=== PATIENT | male | born 1955 | race Caucasian/White ===

== ENCOUNTER 2024-06-22 11:07 | Day surgery (SDC) | payer OTHER ==
[~2024-06-22] VITALS: Ht 177.8 cm; Wt 85.4 kg
[2024-06-22] VITALS (10 sets, daily range): BP systolic 126–164; BP diastolic 64–94; PULSE 83–113; RESP 14–22; TEMP 98.6; O2SAT 94–96
[2024-06-22] MEDS ORDERED: ATOR-429 PO (11:43)
[2024-06-22] MEDS ORDERED: Vitamin D (11:43)
[2024-06-22] MEDS ORDERED: DIPH25TA62 PO (11:43)
[2024-06-22] MEDS ORDERED: FAMO20TA8 PO (11:43)
[2024-06-22] MEDS ORDERED: PRED20TA PO (11:43)
[2024-06-22 12:02] LABS: BASOPHILS # (AUTO) 0.1 X10'3 (0-0.2); BASOPHILS % (AUTO) 0.4 % (0-1); EOSINOPHILS % (AUTO) 0 % (0-6); HEMATOCRIT 46.5 % (42.0-52.0); HEMOGLOBIN 15.5 g/dl (14.0-17.9); LYMPHOCYTES % (AUTO) 5.8 % (21-51); MEAN CORPUSCULAR HGB CONC 33.3 g/dL (33.0-36.5); MEAN CORPUSCULAR VOLUME 93.2 FL (78-98); MEAN PLATELET VOLUME 8.3 FL (7.4-10.4); MONOCYTES # (AUTO) 0.2 X10'3 (0-0.9); MONOCYTES % (AUTO) 1.1 % (2-12); NEUTROPHILS # (AUTO) 15.8 X10'3 (1.8-7.7); NEUTROPHILS % (AUTO) 92.7 % (42-75); PLATELET COUNT 343 X10'3 (140-440); RED BLOOD COUNT 4.99 X10'6 (4.70-6.10); RED CELL DISTRIBUTION WIDTH 13.9 % (11.5-14.5); WHITE BLOOD COUNT 17.1 X10'3 (4.5-11.0)
[2024-06-22] MEDS ORDERED: midazolam 1 mg/ML 2ml injection ONE ×2 (12:08→13:35)
[2024-06-22] MEDS ORDERED: verapamil 2.5 mg/ml inj IV ONE (12:08)
[2024-06-22] MEDS ORDERED: LIDOcaine 1% (10mg/ml) 2ml vial ONE (12:08)
[2024-06-22] MEDS ORDERED: heparin 1,000unit/ml 10ml vial 10 ML ONE (12:09)
[2024-06-22] MEDS ORDERED: iohexol 350MG/ML 100ml bottle IV ONE (12:09)
[2024-06-22] MEDS ORDERED: fentaNYL/PF 50MCG/1 ML 2ML syringe ONE (12:09)
[2024-06-22] MEDS ORDERED: nitroGLYCERIN 500mcg/5mL D5W 5 ML IV ONE (12:14)
[2024-06-22] MEDS: diphenhydrAMINE 25mg capsule PO PRN (12:19)
[2024-06-22] MEDS: LORazepam 0.5 MG tablet PO PRN (12:20)
[2024-06-22] MEDS: normal saline 1,000 ML IV SCH (12:20)
[2024-06-22 12:21] LABS: APTT 27 SECONDS (22-32); INR 1.1 INR
[2024-06-22 12:26] LABS: ALBUMIN 4.3 G/DL (3.4-5.0); ANION GAP 15 (8-16); BLOOD UREA NITROGEN 13 MG/DL (7-18); BUN/CREATININE RATIO 14.4 (10.0-20.0); CALCIUM 9.5 MG/DL (8.5-10.1); CHLORIDE 107 MMOL/L (99-107); CHOL/HDL RATIO 2.9 (0.00-4.99); CHOLESTEROL 160 MG/DL (0-200); GLUCOSE 121 MG/DL (70-104); HDL CHOLESTEROL 55 MG/DL (35-60); LDL CHOLESTEROL 85 MG/DL (50-100); POTASSIUM 3.8 MMOL/L (3.5-5.1); SODIUM 143 MMOL/L (135-145); TOTAL CARBON DIOXIDE 21.5 MMOL/L (24-32); TRIGLYCERIDES 57 MG/DL (20-135); eCRCL 80 ML/MIN; eGFR 84 ML/MIN
[2024-06-22] MEDS ORDERED: HYDROcodone/acetaminophen 5mg/325mg tablet PO PRN (14:35)
[2024-06-22] MEDS ORDERED: HYDROcodone/acetaminophen 10/325mg tab PO PRN (14:35)
[2024-06-22] MEDS ORDERED: NITR0.4T51 SL (16:37)
[2024-06-23] MEDS ORDERED: 0.9126SP BOTHNARES (22:23)
== END 2024-06-22 17:00 | disposition home or self-care (01) ==
LOC: SSTAY O 11:07
PROVIDERS: ATTEND Student in an Organized Health Care Education/Training Program
DX: I25.10 Atherosclerotic heart disease of native coronary artery without angina pectoris (principal); E78.5 Hyperlipidemia, unspecified; Z79.01 Long term (current) use of anticoagulants; Z91.041 Radiographic dye allergy status; Z79.899 Other long term (current) drug therapy
CPT/HCPCS: 36415; 80048; 80061; 85025; 85610; 85730; 93005; 93458; J1644; J2003; J2250; J3010; J3490; J7030; Q0163; Q9967; 99152; 99153; A6258; A6402; C1894

== ENCOUNTER 2024-06-23 20:10 | Inpatient (IN) | payer MEDICARE, OTHER ==
[~2024-06-23] VITALS: Ht 175.3 cm; Wt 83.3 kg
[~2024-06-23 20:10] MED LIST: ATOR-429 PO; DIPH25TA62 PO; FAMO20TA8 PO; NITR0.4T51 SL; PRED20TA PO; Vitamin D
[2024-06-23 20:53] LABS: BASOPHILS # (AUTO) 0.1 X10'3 (0-0.2); BASOPHILS % (AUTO) 1.2 % (0-1); EOSINOPHILS # (AUTO) 0.1 X10'3 (0-0.9); EOSINOPHILS % (AUTO) 0.8 % (0-6); HEMATOCRIT 38.7 % (42.0-52.0); HEMOGLOBIN 13.5 g/dl (14.0-17.9); LYMPHOCYTES # (AUTO) 2.6 X10'3 (1.1-4.8); LYMPHOCYTES % (AUTO) 28.1 % (21-51); MEAN CORPUSCULAR HEMOGLOBIN 32.2 PG (27.0-31.0); MEAN CORPUSCULAR HGB CONC 34.8 g/dL (33.0-36.5); MEAN CORPUSCULAR VOLUME 92.6 FL (78-98); MEAN PLATELET VOLUME 8.1 FL (7.4-10.4); MONOCYTES # (AUTO) 0.7 X10'3 (0-0.9); MONOCYTES % (AUTO) 7.3 % (2-12); NEUTROPHILS # (AUTO) 5.9 X10'3 (1.8-7.7); NEUTROPHILS % (AUTO) 62.6 % (42-75); PLATELET COUNT 276 X10'3 (140-440); RED BLOOD COUNT 4.18 X10'6 (4.70-6.10); RED CELL DISTRIBUTION WIDTH 13.7 % (11.5-14.5); WHITE BLOOD COUNT 9.4 X10'3 (4.5-11.0)
[2024-06-23 21:04] LABS: ALANINE AMINOTRANSFERASE 51 U/L (12-78); ALBUMIN 3.6 G/DL (3.4-5.0); ALBUMIN/GLOBULIN RATIO 1.2 (1.1-1.5); ALKALINE PHOSPHATASE 90 IU/L (46-116); ANION GAP 8 (8-16); ASPARTATE AMINO TRANSFERASE 29 U/L (10-37); BILIRUBIN,TOTAL 0.3 MG/DL (0.1-1.0); BLOOD UREA NITROGEN 17 MG/DL (7-18); BUN/CREATININE RATIO 16.5 (10.0-20.0); CHLORIDE 111 MMOL/L (99-107); CREATININE 1.03 MG/DL (0.60-1.10); GLUCOSE 94 MG/DL (70-104); LIPASE 45 U/L (16-77); POTASSIUM 3.7 MMOL/L (3.5-5.1); PRO BRAIN NATRIURETIC PEPTIDE 102 PG/ML (0-125); SODIUM 143 MMOL/L (135-145); TOTAL CARBON DIOXIDE 23.7 MMOL/L (24-32); TOTAL PROTEIN 6.5 G/DL (6.4-8.2); eCRCL 70 ML/MIN; eGFR 72 ML/MIN
[2024-06-23 21:28] LABS: CALCIUM 8.7 MG/DL (8.5-10.1)
[2024-06-23 21:49] LABS: BILIRUBIN,URINE NEGATIVE (Neg); CLARITY,URINE CLEAR (Clear); COLOR,URINE YELLOW (Yellow); GLUCOSE, URINE NEGATIVE (Neg); KETONES,URINE NEGATIVE (Neg); LEUKOCYTE ESTERASE ,URINE NEGATIVE (Neg); NITRITES, URINE NEGATIVE (Neg); OCCULT BLOOD,URINE NEGATIVE (Neg); PROTEIN,URINE NEGATIVE (Neg); UROBILINOGEN,URINE 0.2 E.U/dL (0.2-1.0)
[2024-06-23 21:53] LABS: UA COLLECTION TYPE CLN CATCH MIDSTREAM
[2024-06-23] MEDS ORDERED: magnesium Cl slow-release 64mg tablet PO PRN (21:55)
[2024-06-23] MEDS ORDERED: magnesium sulf-water 2g/50mL 50 ML IV PRN (21:55)
[2024-06-23] MEDS ORDERED: mag hydrox/Alum hydrox/simeth 30ml oral suspension PO PRN (21:55)
[2024-06-23] MEDS ORDERED: potassium Cl 20 mEq SR tablet PO PRN ×2 (21:55)
[2024-06-23] MEDS ORDERED: magnesium sulf-water 4G/100mL 100 ML IV PRN (21:55)
[2024-06-23] MEDS ORDERED: potassium Cl 40MEQ/1/2NS 520ml 520 ML IV PRN (21:55)
[2024-06-23] MEDS ORDERED: acetaminophen 325mg tablet PO PRN ×2 (21:55)
[2024-06-23] MEDS ORDERED: ondansetron/PF 4mg/2ml inj IV PRN (21:55)
[2024-06-23] MEDS ORDERED: magnesium hydroxide 30ml (MOM) UD suspension PO PRN (21:55)
[2024-06-23] MEDS: metoprolol succinate 25mg (24-HOUR) SR. Tablet PO SCH (22:00)
[2024-06-23] MEDS ORDERED: 0.9126SP BOTHNARES (22:23)
[2024-06-23] MEDS ORDERED: ipratropium 0.03% 30ML nasal spray NS PRN (23:40)
[2024-06-23] MEDS ORDERED: nitroGLYCERIN 0.4mg SUBLingual tab SL PRN (23:40)
[2024-06-24 00:37] LABS: URINE AMPHETAMINE SCREEN NEGATIVE (Neg); URINE BARBITUATE SCREEN NEGATIVE (Neg); URINE BENZODIAZEPINES SCREEN POSITIVE (Neg); URINE CANNABINOID SCREEN NEGATIVE (Neg); URINE COCAINE SCREEN NEGATIVE (Neg); URINE METHADONE SCREEN NEGATIVE (Neg); URINE OPIATE SCREEN NEGATIVE (Neg); URINE PHENCYCLIDINE SCREEN NEGATIVE (Neg)
[2024-06-24 02:50] LABS: BASOPHILS # (AUTO) 0.1 X10'3 (0-0.2); BASOPHILS % (AUTO) 0.7 % (0-1); EOSINOPHILS # (AUTO) 0.1 X10'3 (0-0.9); EOSINOPHILS % (AUTO) 0.7 % (0-6); HEMATOCRIT 40.4 % (42.0-52.0); HEMOGLOBIN 13.8 g/dl (14.0-17.9); LYMPHOCYTES # (AUTO) 2.6 X10'3 (1.1-4.8); LYMPHOCYTES % (AUTO) 29.7 % (21-51); MEAN CORPUSCULAR HEMOGLOBIN 31.7 PG (27.0-31.0); MEAN CORPUSCULAR HGB CONC 34.2 g/dL (33.0-36.5); MEAN CORPUSCULAR VOLUME 92.8 FL (78-98); MEAN PLATELET VOLUME 7.9 FL (7.4-10.4); MONOCYTES # (AUTO) 0.7 X10'3 (0-0.9); MONOCYTES % (AUTO) 7.9 % (2-12); NEUTROPHILS # (AUTO) 5.4 X10'3 (1.8-7.7); PLATELET COUNT 279 X10'3 (140-440); RED BLOOD COUNT 4.35 X10'6 (4.70-6.10); RED CELL DISTRIBUTION WIDTH 13.8 % (11.5-14.5); WHITE BLOOD COUNT 8.9 X10'3 (4.5-11.0)
[2024-06-24 03:04] LABS: APTT 28 SECONDS (22-32); INR 1.1 INR
[2024-06-24 03:14] LABS: ALANINE AMINOTRANSFERASE 56 U/L (12-78); ALBUMIN 3.5 G/DL (3.4-5.0); ALBUMIN/GLOBULIN RATIO 1.2 (1.1-1.5); ALKALINE PHOSPHATASE 91 IU/L (46-116); ANION GAP 6 (8-16); ASPARTATE AMINO TRANSFERASE 22 U/L (10-37); BILIRUBIN,TOTAL 0.4 MG/DL (0.1-1.0); BLOOD UREA NITROGEN 16 MG/DL (7-18); BUN/CREATININE RATIO 18.2 (10.0-20.0); CALCIUM 8.5 MG/DL (8.5-10.1); CHLORIDE 111 MMOL/L (99-107); CHOLESTEROL 133 MG/DL (0-200); CREATININE 0.88 MG/DL (0.60-1.10); GLUCOSE 90 MG/DL (70-104); HDL CHOLESTEROL 45 MG/DL (35-60); LDL CHOLESTEROL 64 MG/DL (50-100); MAGNESIUM 1.9 MG/DL (1.5-2.4); PHOSPHORUS 3.2 MG/DL (2.3-4.5); POTASSIUM 3.7 MMOL/L (3.5-5.1); SODIUM 144 MMOL/L (135-145); TOTAL CARBON DIOXIDE 26.6 MMOL/L (24-32); TOTAL PROTEIN 6.4 G/DL (6.4-8.2); TRIGLYCERIDES 127 MG/DL (20-135); eCRCL 82 ML/MIN; eGFR 86 ML/MIN
[2024-06-24] MEDS: K and/or MAG REPLACEMENT MC SCH (06:38)
[2024-06-24] MEDS: docusate sod 100mg capsule PO SCH (07:23)
[2024-06-24] MEDS: atorvastatin 20mg tablet PO SCH (07:23)
[2024-06-24] MEDS: aspirin 81mg, enteric-coated 1 TAB TABLET.DR PO SCH (07:23)
[2024-06-24] MEDS ORDERED: nitroGLYCERIN 0.4mg SUBLingual tab SL PRN (08:20)
[2024-06-24] MEDS ORDERED: Insulin Reg/NS 100units/100mL 100 ML IV SCH (09:35)
[2024-06-24] MEDS ORDERED: insulin glargine (Lantus) pen - multi-dose SQ PRN (09:35)
[2024-06-24] MEDS ORDERED: cefazolin 2gm/D5W 100mL 100 ML IV ONE (09:35)
[2024-06-24] MEDS ORDERED: gabapentin 400mg capsule PO ONE (09:35)
[2024-06-24] MEDS ORDERED: dextrose 50%-water 50ml dispensing syringe IV PRN (09:35)
[2024-06-24] MEDS: MESSAGE TO NURSING PO ONE ×4 (10:18→10:21)
[2024-06-24] MEDS: MESSAGE TO PHARMACY IJ ONE (10:18)
[2024-06-24 10:45] LABS: HEMOGLOBIN A1C 5.8 % (4.5-6.2)
[2024-06-24 11:03] LABS: APTT 28 SECONDS (22-32); PROTHROMBIN TIME 10.9 SECONDS (9.0-12.0)
[2024-06-24] MEDS: salt irrigation nasal spray 45 ML SPRAY NS SCH (13:42)
[2024-06-24 13:49] LABS: ABG BASE EXCESS -1.2 mmol/L (-2.0-3.0); ABG HCO3 21.3 mmol/L (21.0-28.0); ABG OXYGEN SATURATION 96.2 % (94.0-98.0); ABG PCO2 (T) 30.1 mmHg (35.0-48.0); ABG PH (T) 7.468 (7.350-7.450); ABG PO2 (T) 81.4 mmHg (83.0-108.0); ALLEN'S TEST POSITIVE; FHHb 3.8 % (0.0-5.0); FMetHb 0.3 % (0.0-1.5); FO2Hb 95.9 % (94.0-98.0); MODE ROOM AIR; TOTAL HEMOGLOBIN 14.6 G/dl (13.5-17.5)
[2024-06-24 17:31] VITALS: PULSE 96; RESP 16; O2SAT 97
[2024-06-24] MEDS ORDERED: LORA2TAB96 PO (18:44)
[2024-06-24 19:30] VITALS: BP 143/85; PULSE 84; RESP 15; TEMP 97.5; O2SAT 96
[2024-06-24] MEDS ORDERED: enoxaparin 40mg/0.4ml syringe SQ SCH (20:00)
[2024-06-24 22:00] VITALS: BP 157/83; PULSE 102; RESP 15; RESP 17; TEMP 97.6; O2SAT 100
[2024-06-24 22:18] VITALS: BP 156/63; PULSE 100
[2024-06-24] MEDS: Melatonin 3mg tablet PO ONE (23:16)
[2024-06-25] VITALS (19 sets, daily range): BP systolic 82–300; BP diastolic 39–144; PULSE 67–101; RESP 14–26; TEMP 97.4–97.9; O2SAT 90–100
[2024-06-25] MEDS: MESSAGE TO NURSING PO ONE (05:30)
[2024-06-25] MEDS ORDERED: vancomycin inj 1,000 MG in normal saline 250ml IV soln 250 ML IV ONE (05:30)
[2024-06-25] MEDS ORDERED: albumin (human) 25% 100 ML IV solution IV ONE (08:00)
[2024-06-25] MEDS ORDERED: atorvastatin 20mg tablet PO SCH (08:00)
[2024-06-25 08:07] LABS: BASOPHILS # (AUTO) 0.1 X10'3 (0-0.2); BASOPHILS % (AUTO) 0.8 % (0-1); EOSINOPHILS % (AUTO) 0.5 % (0-6); HEMATOCRIT 41.5 % (42.0-52.0); HEMOGLOBIN 14.4 g/dl (14.0-17.9); LYMPHOCYTES # (AUTO) 2.1 X10'3 (1.1-4.8); LYMPHOCYTES % (AUTO) 23.5 % (21-51); MEAN CORPUSCULAR HEMOGLOBIN 31.9 PG (27.0-31.0); MEAN CORPUSCULAR HGB CONC 34.7 g/dL (33.0-36.5); MEAN CORPUSCULAR VOLUME 91.8 FL (78-98); MEAN PLATELET VOLUME 8.4 FL (7.4-10.4); MONOCYTES # (AUTO) 0.6 X10'3 (0-0.9); NEUTROPHILS # (AUTO) 6.1 X10'3 (1.8-7.7); NEUTROPHILS % (AUTO) 68.2 % (42-75); PLATELET COUNT 301 X10'3 (140-440); RED BLOOD COUNT 4.52 X10'6 (4.70-6.10); RED CELL DISTRIBUTION WIDTH 13.4 % (11.5-14.5); WHITE BLOOD COUNT 8.9 X10'3 (4.5-11.0)
[2024-06-25 08:23] LABS: APTT 29 SECONDS (22-32); PROTHROMBIN TIME 10.9 SECONDS (9.0-12.0)
[2024-06-25 08:57] LABS: ALANINE AMINOTRANSFERASE 47 U/L (12-78); ALBUMIN 3.5 G/DL (3.4-5.0); ALBUMIN/GLOBULIN RATIO 1.1 (1.1-1.5); ALKALINE PHOSPHATASE 97 IU/L (46-116); ANION GAP 13 (8-16); ASPARTATE AMINO TRANSFERASE 24 U/L (10-37); BILIRUBIN,TOTAL 0.7 MG/DL (0.1-1.0); BLOOD UREA NITROGEN 16 MG/DL (7-18); BUN/CREATININE RATIO 19.8 (10.0-20.0); CALCIUM 8.9 MG/DL (8.5-10.1); CHLORIDE 108 MMOL/L (99-107); CREATININE 0.81 MG/DL (0.60-1.10); GLUCOSE 97 MG/DL (70-104); PHOSPHORUS 2.9 MG/DL (2.3-4.5); POTASSIUM 3.8 MMOL/L (3.5-5.1); SODIUM 141 MMOL/L (135-145); TOTAL CARBON DIOXIDE 20.4 MMOL/L (24-32); TOTAL PROTEIN 6.7 G/DL (6.4-8.2); eCRCL 89 ML/MIN; eGFR > 90 ML/MIN
[2024-06-25] MEDS: gabapentin 400mg capsule PO ONE (09:14)
[2024-06-25] MEDS: mupirocin 2% nasal ointment 1gm UD NS STA (09:18)
[2024-06-25] MEDS: Insulin Reg/NS 100units/100mL 100 ML IV SCH (11:01)
[2024-06-25] MEDS: ceFAZolin 2gm in dextrose, iso 50 ML IV ONE (11:01)
[2024-06-25] MEDS: vancomycin/NS 1 GM ADD-VANTAGE 250 ML X 1 DOSE IV ONE (11:02)
[2024-06-25] MEDS: LORazepam 2 mg/ml vial IV ONE (11:05)
[2024-06-25] MEDS: oxymetazoline 15 ML nasal spray NS SCH (11:45)
[2024-06-25] MEDS ORDERED: ceFAZolin 1000mg inj ONE (11:56)
[2024-06-25] MEDS ORDERED: epiNEPHrine 1 mg/ml inj ONE (11:56)
[2024-06-25] MEDS ORDERED: BUPIVAcaine 0.5% inj/PF 30 ML ONE (11:56)
[2024-06-25] MEDS ORDERED: vancomycin 1,000mg inj ONE (11:56)
[2024-06-25] MEDS ORDERED: fentaNYL/PF 50MCG/1 ML 2ML syringe IV PRN (12:00)
[2024-06-25] MEDS ORDERED: midazolam 100mg in NS 100ml 100 ML IV SCH (12:00)
[2024-06-25] MEDS: midazolam 1 mg/ML 2ml injection IV ONE (12:00)
[2024-06-25] MEDS: ceFAZolin 1000mg inj IR ONE (12:00)
[2024-06-25] MEDS ORDERED: FENTANYL-0.9 % NACL/PF 100 ML IV SCH (12:00)
[2024-06-25] MEDS: metoprolol tartrate 12.5mg (1/2 tablet) PO ONE (12:29)
[2024-06-25] MEDS ORDERED: MIDAZolam 1mg/ml 10ml vial ONE (12:30)
[2024-06-25] MEDS ORDERED: SUfentanil 50mcg/ml 1ml amp IV ONE (12:30)
[2024-06-25] MEDS ORDERED: isoflurane 100ml inhalation liquid IH ONE (12:34)
[2024-06-25 13:14] LABS: ABG BASE EXCESS -3.9 mmol/L (-2.0-3.0); ABG HCO3 18.2 mmol/L (21.0-28.0); ABG OXYGEN SATURATION 99.5 % (94.0-98.0); ABG PH 7.463 (7.350-7.450); CL (ABG) 108 mmol/L (98-107); FCOHb 0.1 % (0.5-1.5); FHHb 0.5 % (0.0-5.0); FMetHb 0.1 % (0.0-1.5); FO2Hb 99.3 % (94.0-98.0); GLUCOSE (ABG) 82 mg/dl (65-95); IONIZED CA (ABG) 1.14 mmol/L (1.15-1.33); K (ABG) 3.5 mmol/L (3.40-4.50); TOTAL HEMOGLOBIN 13.8 G/dl (13.5-17.5)
[2024-06-25] MEDS ORDERED: albumin (Human) 5% 250ml 250 ML IV ONE (13:23)
[2024-06-25 14:16] LABS: ABG BASE EXCESS -6.2 mmol/L (-2.0-3.0); ABG HCO3 18.9 mmol/L (21.0-28.0); ABG OXYGEN SATURATION 99.3 % (94.0-98.0); ABG PCO2 36.1 mmHg (35.0-48.0); ABG PH 7.337 (7.350-7.450); CL (ABG) 107 mmol/L (98-107); FCOHb 0.6 % (0.5-1.5); FHHb 0.7 % (0.0-5.0); FMetHb 0.3 % (0.0-1.5); FO2Hb 98.4 % (94.0-98.0); GLUCOSE (ABG) 92 mg/dl (65-95); IONIZED CA (ABG) 1.16 mmol/L (1.15-1.33); K (ABG) 3.6 mmol/L (3.40-4.50); TOTAL HEMOGLOBIN 13.2 G/dl (13.5-17.5)
[2024-06-25] MEDS ORDERED: heparin 1,000unit/ml 10ml vial 10 ML ONE (14:33)
[2024-06-25] MEDS ORDERED: rocuronium 10mg/ml inj IV ONE ×3 (14:33)
[2024-06-25] MEDS ORDERED: LIDOcaine 2% (20mg/ml) 5ml vial ONE (14:34)
[2024-06-25] MEDS ORDERED: 0.9 % SODIUM CHLORIDE 10 ML VIAL ONE (14:34)
[2024-06-25] MEDS ORDERED: propofol inj 20 ML IV ONE (14:34)
[2024-06-25 15:10] LABS: ABG BASE EXCESS -7.6 mmol/L (-2.0-3.0); ABG HCO3 17.3 mmol/L (21.0-28.0); ABG OXYGEN SATURATION 99.2 % (94.0-98.0); ABG PCO2 33.5 mmHg (35.0-48.0); ABG PH 7.332 (7.350-7.450); ABG PO2 236.3 mmHg (83.0-108.0); CL (ABG) 109 mmol/L (98-107); FCOHb 0.2 % (0.5-1.5); FHHb 0.8 % (0.0-5.0); FMetHb 0.3 % (0.0-1.5); FO2Hb 98.7 % (94.0-98.0); GLUCOSE (ABG) 125 mg/dl (65-95); IONIZED CA (ABG) 1.12 mmol/L (1.15-1.33); K (ABG) 3.6 mmol/L (3.40-4.50); TOTAL HEMOGLOBIN 12.3 G/dl (13.5-17.5)
[2024-06-25 15:11] LABS: ACTIVATED CLOTTING TIME 119 SEC (101-148)
[2024-06-25] MEDS ORDERED: nitroGLYCERIN-Tridil 50MG/D5W 250 ML IV SCH (15:25)
[2024-06-25] MEDS ORDERED: mineral oil 133ml enema RC PRN (15:25)
[2024-06-25] MEDS ORDERED: niCARDipine-NS 40mg/200ml IVPB 200 ML IV PRN (15:25)
[2024-06-25] MEDS ORDERED: bisacodyl 10mg suppository rectal RC PRN (15:25)
[2024-06-25] MEDS ORDERED: acetaminophen 325mg tablet PO PRN (15:25)
[2024-06-25] MEDS ORDERED: magnesium hydroxide 30ml (MOM) UD suspension PO PRN (15:25)
[2024-06-25] MEDS ORDERED: potassium Cl 40MEQ/1/2NS 520ml 520 ML IV PRN (15:25)
[2024-06-25] MEDS ORDERED: potassium CL 10mEq/100ml bag 100 ML IV PRN (15:25)
[2024-06-25] MEDS ORDERED: metoclopramide 5 mg/ml inj IV PRN (15:25)
[2024-06-25] MEDS ORDERED: esmolol inj. 10 ML IV ONE (15:31)
[2024-06-25 16:16] LABS: ABG BASE EXCESS -7.4 mmol/L (-2.0-3.0); ABG HCO3 18.3 mmol/L (21.0-28.0); ABG PCO2 (T) 37.7 mmHg (35.0-48.0); ABG PH (T) 7.303 (7.350-7.450); ABG PO2 (T) 173.2 mmHg (83.0-108.0); FCOHb 0.1 % (0.5-1.5); FMetHb 0.3 % (0.0-1.5); FO2Hb 98.6 % (94.0-98.0); MODE VENT - SIMV; PEEP 5 cm H2O; RESPIRATORY RATE 12 b/min; TIDAL VOLUME 550 mL; TOTAL HEMOGLOBIN 12.9 G/dl (13.5-17.5)
[2024-06-25 16:18] LABS: BASOPHILS % (AUTO) 0.2 % (0-1); EOSINOPHILS # (AUTO) 0.1 X10'3 (0-0.9); EOSINOPHILS % (AUTO) 0.7 % (0-6); HEMATOCRIT 35.3 % (42.0-52.0); HEMOGLOBIN 11.9 g/dl (14.0-17.9); LYMPHOCYTES # (AUTO) 2.2 X10'3 (1.1-4.8); LYMPHOCYTES % (AUTO) 13.1 % (21-51); MEAN CORPUSCULAR HEMOGLOBIN 31.2 PG (27.0-31.0); MEAN CORPUSCULAR HGB CONC 33.8 g/dL (33.0-36.5); MEAN CORPUSCULAR VOLUME 92.4 FL (78-98); MEAN PLATELET VOLUME 7.7 FL (7.4-10.4); MONOCYTES # (AUTO) 0.7 X10'3 (0-0.9); MONOCYTES % (AUTO) 4.2 % (2-12); NEUTROPHILS # (AUTO) 13.5 X10'3 (1.8-7.7); NEUTROPHILS % (AUTO) 81.8 % (42-75); PLATELET COUNT 244 X10'3 (140-440); RED BLOOD COUNT 3.83 X10'6 (4.70-6.10); RED CELL DISTRIBUTION WIDTH 13.8 % (11.5-14.5); WHITE BLOOD COUNT 16.4 X10'3 (4.5-11.0)
[2024-06-25] MEDS: morphine 4 MG/ML inj SYRINge IV PRN (16:32)
[2024-06-25] MEDS ORDERED: OXYM-21 BOTHNARES (16:32)
[2024-06-25 16:34] LABS: INR 1.2 INR; PROTHROMBIN TIME 12.1 SECONDS (9.0-12.0)
[2024-06-25 16:35] LABS: APTT 25 SECONDS (22-32)
[2024-06-25 16:36] LABS: ALANINE AMINOTRANSFERASE 38 U/L (12-78); ALBUMIN/GLOBULIN RATIO 1.4 (1.1-1.5); ALKALINE PHOSPHATASE 68 IU/L (46-116); ANION GAP 13 (8-16); ASPARTATE AMINO TRANSFERASE 18 U/L (10-37); BILIRUBIN,TOTAL 0.7 MG/DL (0.1-1.0); BLOOD UREA NITROGEN 15 MG/DL (7-18); BUN/CREATININE RATIO 21.1 (10.0-20.0); CHLORIDE 108 MMOL/L (99-107); CREATININE 0.71 MG/DL (0.60-1.10); GLUCOSE 140 MG/DL (70-104); POTASSIUM 3.9 MMOL/L (3.5-5.1); SODIUM 142 MMOL/L (135-145); TOTAL CARBON DIOXIDE 21.3 MMOL/L (24-32); TOTAL PROTEIN 5.2 G/DL (6.4-8.2); eCRCL 98 ML/MIN; eGFR > 90 ML/MIN
[2024-06-25 16:37] LABS: MAGNESIUM 1.7 MG/DL (1.5-2.4); PHOSPHORUS 3.5 MG/DL (2.3-4.5)
[2024-06-25] MEDS: sodium chloride 0.45% 1,000 ML IV SCH (17:06)
[2024-06-25] MEDS: nitroGLYCERIN-Tridil 50MG/D5W 250 ML IV SCH (17:08)
[2024-06-25] MEDS: albumin (Human) 5% 250ml 250 ML IV PRN (17:14)
[2024-06-25] MEDS: ceFAZolin/D5W- 1GM premix 50 ML IV SCH (17:26)
[2024-06-25] MEDS: ketorolac trometh 15mg/ml vial 15 MG/ML ML IV SCH (18:01)
[2024-06-25] MEDS: potassium Cl 20mEq/100mL bag 100 ML IV PRN (18:33)
[2024-06-25] MEDS: magnesium sulf-water 4G/100mL 100 ML IV PRN (18:43)
[2024-06-25] MEDS ORDERED: dextrose 50%-water 50ml dispensing syringe IV PRN (19:15)
[2024-06-25] MEDS: sennosides/docusate sodium tablet PO SCH (20:00)
[2024-06-25] MEDS ORDERED: VANCOMYCIN 1GM 200ML H20 (PEG) 200 ML IV SCH (20:00)
[2024-06-25] MEDS: atorvastatin 10mg tablet PO SCH (20:09)
[2024-06-25] MEDS: vancomycin/NS 1 GM ADD-VANTAGE 250 ML IV SCH (20:09)
[2024-06-25] MEDS: mupirocin 2% nasal ointment 1gm UD NS SCH (20:09)
[2024-06-25] MEDS: magnesium sulf-water 2g/50mL 50 ML IV PRN (22:01)
[2024-06-25 22:28] LABS: BASOPHILS % (AUTO) 0.1 % (0-1); EOSINOPHILS % (AUTO) 0 % (0-6); HEMATOCRIT 31.6 % (42.0-52.0); HEMOGLOBIN 10.5 g/dl (14.0-17.9); LYMPHOCYTES # (AUTO) 0.4 X10'3 (1.1-4.8); LYMPHOCYTES % (AUTO) 2.7 % (21-51); MEAN CORPUSCULAR HGB CONC 33.3 g/dL (33.0-36.5); MEAN CORPUSCULAR VOLUME 93.1 FL (78-98); MONOCYTES # (AUTO) 0.7 X10'3 (0-0.9); NEUTROPHILS # (AUTO) 12.8 X10'3 (1.8-7.7); NEUTROPHILS % (AUTO) 92.2 % (42-75); PLATELET COUNT 222 X10'3 (140-440); RED BLOOD COUNT 3.39 X10'6 (4.70-6.10); RED CELL DISTRIBUTION WIDTH 13.3 % (11.5-14.5); WHITE BLOOD COUNT 13.9 X10'3 (4.5-11.0)
[2024-06-25 22:41] LABS: ALBUMIN 3.4 G/DL (3.4-5.0); ANION GAP 12 (8-16); BLOOD UREA NITROGEN 18 MG/DL (7-18); BUN/CREATININE RATIO 22.8 (10.0-20.0); CALCIUM 7.4 MG/DL (8.5-10.1); CHLORIDE 110 MMOL/L (99-107); CREATININE 0.79 MG/DL (0.60-1.10); GLUCOSE 134 MG/DL (70-104); MAGNESIUM 2.9 MG/DL (1.5-2.4); PHOSPHORUS 2.8 MG/DL (2.3-4.5); POTASSIUM 4.7 MMOL/L (3.5-5.1); SODIUM 140 MMOL/L (135-145); TOTAL CARBON DIOXIDE 17.8 MMOL/L (24-32); eCRCL 88 ML/MIN; eGFR > 90 ML/MIN
[2024-06-26] VITALS (25 sets, daily range): BP systolic 91–117; BP diastolic 54–72; PULSE 86–116; RESP 14–30; O2SAT 92–99
[2024-06-26] MEDS: morphine 2 MG/ML inj. syringe IV PRN (00:09)
[2024-06-26] MEDS: Insulin Reg/NS 100units/100mL 100 ML IV SCH (01:11)
[2024-06-26] MEDS: HYDROcodone/acetaminophen 10/325mg tab PO PRN ×2 (03:18→20:51)
[2024-06-26] MEDS ORDERED: NORepinephrine 8mg/ 250ml NS 250 ML IV PRN (05:15)
[2024-06-26 06:04] LABS: BASOPHILS % (AUTO) 0.1 % (0-1); EOSINOPHILS % (AUTO) 0 % (0-6); HEMATOCRIT 29.7 % (42.0-52.0); HEMOGLOBIN 10.3 g/dl (14.0-17.9); LYMPHOCYTES # (AUTO) 0.7 X10'3 (1.1-4.8); LYMPHOCYTES % (AUTO) 5.1 % (21-51); MEAN CORPUSCULAR HEMOGLOBIN 32.1 PG (27.0-31.0); MEAN CORPUSCULAR HGB CONC 34.7 g/dL (33.0-36.5); MEAN CORPUSCULAR VOLUME 92.5 FL (78-98); MEAN PLATELET VOLUME 8.7 FL (7.4-10.4); MONOCYTES # (AUTO) 0.9 X10'3 (0-0.9); MONOCYTES % (AUTO) 7.1 % (2-12); NEUTROPHILS # (AUTO) 11.6 X10'3 (1.8-7.7); NEUTROPHILS % (AUTO) 87.7 % (42-75); PLATELET COUNT 242 X10'3 (140-440); RED BLOOD COUNT 3.21 X10'6 (4.70-6.10); RED CELL DISTRIBUTION WIDTH 13.1 % (11.5-14.5); WHITE BLOOD COUNT 13.2 X10'3 (4.5-11.0)
[2024-06-26 06:11] LABS: HBSAG SCREEN Negative (Negative); HEP B CORE AB, IGM Negative (Negative); HEP B CORE AB, TOT Negative (Negative); HEP B SURF AB Reactive (.)
[2024-06-26 06:32] LABS: ALANINE AMINOTRANSFERASE 35 U/L (12-78); ALBUMIN 3.5 G/DL (3.4-5.0); ALBUMIN/GLOBULIN RATIO 1.6 (1.1-1.5); ALKALINE PHOSPHATASE 61 IU/L (46-116); ANION GAP 8 (8-16); ASPARTATE AMINO TRANSFERASE 24 U/L (10-37); BILIRUBIN,TOTAL 0.8 MG/DL (0.1-1.0); BLOOD UREA NITROGEN 16 MG/DL (7-18); BUN/CREATININE RATIO 22.9 (10.0-20.0); CALCIUM 7.3 MG/DL (8.5-10.1); CHLORIDE 108 MMOL/L (99-107); GLUCOSE 109 MG/DL (70-104); MAGNESIUM 2.9 MG/DL (1.5-2.4); PHOSPHORUS 3.1 MG/DL (2.3-4.5); POTASSIUM 4.3 MMOL/L (3.5-5.1); SODIUM 138 MMOL/L (135-145); TOTAL PROTEIN 5.7 G/DL (6.4-8.2); eCRCL 100 ML/MIN; eGFR > 90 ML/MIN
[2024-06-26] MEDS: albumin (Human) 5% 250ml 250 ML IV ONE ×3 (07:36→19:53)
[2024-06-26] MEDS: metoprolol tartrate 12.5mg (1/2 tablet) PO SCH (08:00)
[2024-06-26] MEDS: isosorbide mononitrate 30mg tab.SR.24H PO SCH (09:22)
[2024-06-26] MEDS: aspirin 81mg tab.chew PO SCH (09:23)
[2024-06-26] MEDS: potassium Cl 20 mEq SR tablet PO PRN (10:59)
[2024-06-26] MEDS: NORepinephrine 8mg/ 250ml NS 250 ML IV ONE (13:29)
[2024-06-26] MEDS ORDERED: mineral oil/petrolatum ophthal oint EACHEYE SCH (14:00)
[2024-06-26] MEDS: NORepinephrine 8mg/ 250ml NS 250 ML IV SCH (14:26)
[2024-06-26] MEDS ORDERED: CHOL200012 PO (14:43)
[2024-06-26] MEDS: INSULIN LISPRO 100 UNIT/ML INSULN.PEN MULTI-DOSE SQ SCH (17:15)
[2024-06-26 18:57] LABS: BASOPHILS # (AUTO) 0.1 X10'3 (0-0.2); BASOPHILS % (AUTO) 0.4 % (0-1); EOSINOPHILS % (AUTO) 0 % (0-6); HEMATOCRIT 28.7 % (42.0-52.0); HEMOGLOBIN 9.7 g/dl (14.0-17.9); LYMPHOCYTES # (AUTO) 1.4 X10'3 (1.1-4.8); LYMPHOCYTES % (AUTO) 9.1 % (21-51); MEAN CORPUSCULAR HEMOGLOBIN 31.2 PG (27.0-31.0); MEAN CORPUSCULAR HGB CONC 33.9 g/dL (33.0-36.5); MEAN CORPUSCULAR VOLUME 92.2 FL (78-98); MEAN PLATELET VOLUME 8.3 FL (7.4-10.4); MONOCYTES # (AUTO) 1.1 X10'3 (0-0.9); MONOCYTES % (AUTO) 6.9 % (2-12); NEUTROPHILS % (AUTO) 83.6 % (42-75); PLATELET COUNT 255 X10'3 (140-440); RED BLOOD COUNT 3.11 X10'6 (4.70-6.10); RED CELL DISTRIBUTION WIDTH 13.3 % (11.5-14.5); WHITE BLOOD COUNT 15.6 X10'3 (4.5-11.0)
[2024-06-26 19:12] LABS: ALANINE AMINOTRANSFERASE 29 U/L (12-78); ALBUMIN 3.4 G/DL (3.4-5.0); ALBUMIN/GLOBULIN RATIO 1.4 (1.1-1.5); ALKALINE PHOSPHATASE 55 IU/L (46-116); ANION GAP 6 (8-16); ASPARTATE AMINO TRANSFERASE 23 U/L (10-37); BILIRUBIN,TOTAL 0.8 MG/DL (0.1-1.0); BLOOD UREA NITROGEN 18 MG/DL (7-18); BUN/CREATININE RATIO 23.1 (10.0-20.0); CALCIUM 7.7 MG/DL (8.5-10.1); CHLORIDE 108 MMOL/L (99-107); CREATININE 0.78 MG/DL (0.60-1.10); GLUCOSE 142 MG/DL (70-104); MAGNESIUM 2.8 MG/DL (1.5-2.4); PHOSPHORUS 1.7 MG/DL (2.3-4.5); POTASSIUM 4.4 MMOL/L (3.5-5.1); SODIUM 138 MMOL/L (135-145); TOTAL CARBON DIOXIDE 23.8 MMOL/L (24-32); TOTAL PROTEIN 5.8 G/DL (6.4-8.2); eCRCL 89 ML/MIN; eGFR > 90 ML/MIN
[2024-06-27] VITALS (29 sets, daily range): BP systolic 89–138; BP diastolic 43–83; PULSE 96–122; RESP 13–29; TEMP 97.2–99.7; O2SAT 95–98
[2024-06-27 03:10] LABS: ALBUMIN 3.4 G/DL (3.4-5.0); ANION GAP 6 (8-16); BLOOD UREA NITROGEN 15 MG/DL (7-18); BUN/CREATININE RATIO 22.1 (10.0-20.0); CALCIUM 7.8 MG/DL (8.5-10.1); CHLORIDE 109 MMOL/L (99-107); CREATININE 0.68 MG/DL (0.60-1.10); GLUCOSE 120 MG/DL (70-104); POTASSIUM 4.1 MMOL/L (3.5-5.1); SODIUM 139 MMOL/L (135-145); TOTAL CARBON DIOXIDE 24.3 MMOL/L (24-32); eCRCL 103 ML/MIN; eGFR > 90 ML/MIN
[2024-06-27] MEDS: potassium Cl 40MEQ/270ML bag 250 ML IV PRN (05:18)
[2024-06-27] MEDS: pantoprazole 40mg Tablet.DR PO SCH (07:21)
[2024-06-27] MEDS: amiodarone 150mg/dext, iso-os 100 ML IV ONE (09:45)
[2024-06-27] MEDS: amiodarone/D5 360MG/200ML BAG 200 ML IV PRN (09:51)
[2024-06-27] MEDS: ondansetron/PF 4mg/2ml inj IV PRN (13:28)
[2024-06-27] MEDS: acetaminophen 325mg tablet PO PRN (13:29)
[2024-06-27] MEDS: albumin (Human) 5% 250ml 250 ML IV ONE (14:22)
[2024-06-28] VITALS (22 sets, daily range): BP systolic 94–138; BP diastolic 52–83; PULSE 92–105; RESP 19–32; TEMP 97.1–98.9; O2SAT 93–96
[2024-06-28 08:33] LABS: ABG PO2 374.3 mmHg (83.0-108.0)
[2024-06-28 08:34] LABS: ABG PO2 330.2 mmHg (83.0-108.0)
[2024-06-28 11:05] LABS: ALBUMIN 2.9 G/DL (3.4-5.0); ANION GAP 7 (8-16); BLOOD UREA NITROGEN 16 MG/DL (7-18); BUN/CREATININE RATIO 22.2 (10.0-20.0); CHLORIDE 109 MMOL/L (99-107); CREATININE 0.72 MG/DL (0.60-1.10); GLUCOSE 101 MG/DL (70-104); POTASSIUM 3.9 MMOL/L (3.5-5.1); SODIUM 141 MMOL/L (135-145); TOTAL CARBON DIOXIDE 25.5 MMOL/L (24-32); eCRCL 97 ML/MIN; eGFR > 90 ML/MIN
[2024-06-28] MEDS: amiodarone 200mg tablet PO SCH (12:08)
[2024-06-29] VITALS (8 sets, daily range): BP systolic 114–136; BP diastolic 62–77; PULSE 98–117; RESP 13–21; TEMP 97.2–98.5; O2SAT 92–96
[2024-06-29 07:41] LABS: ALBUMIN 2.8 G/DL (3.4-5.0); ANION GAP 9 (8-16); BLOOD UREA NITROGEN 18 MG/DL (7-18); BUN/CREATININE RATIO 21.4 (10.0-20.0); CALCIUM 8.4 MG/DL (8.5-10.1); CHLORIDE 111 MMOL/L (99-107); CREATININE 0.84 MG/DL (0.60-1.10); GLUCOSE 89 MG/DL (70-104); POTASSIUM 3.7 MMOL/L (3.5-5.1); SODIUM 143 MMOL/L (135-145); TOTAL CARBON DIOXIDE 22.9 MMOL/L (24-32); eCRCL 83 ML/MIN; eGFR > 90 ML/MIN
[2024-06-29] MEDS ORDERED: ISOS30TA84 PO (10:00)
[2024-06-29] MEDS ORDERED: ASPI81TA53 PO (10:00)
[2024-06-29] MEDS ORDERED: LOP12.5T PO (10:00)
[2024-06-29] MEDS ORDERED: HYDR-3972 PO (10:00)
[2024-06-29] MEDS ORDERED: AMI200T PO (10:00)
[2024-06-29] MEDS: magnesium citrate 296ml oral solution PO ONE (10:52)
[2024-06-29] MEDS: JUVEN Smoothie Arginine/Glut./Ca2+Bmb (Juven 19.3pkt) 240ml cup PO SCH (17:30)
[2024-06-30 02:00] VITALS: BP 126/84; PULSE 105; RESP 24; TEMP 97.8; O2SAT 92
[2024-06-30 07:00] VITALS: BP 147/84; PULSE 107; RESP 16; TEMP 98.6; O2SAT 96
[2024-06-30 07:45] VITALS: RESP 16
[2024-06-30 08:04] VITALS: RESP 16
[2024-06-30 08:15] VITALS: BP_SYST 147; PULSE 107
[2024-07-07] MEDS ORDERED: HYDR-3973 PO (10:18)
== END 2024-06-30 11:11 | disposition home or self-care (01) | DRG 236 ==
LOC: ER 20:11 → ED HOLD 21:56 → PCU 3S 06-24 19:15 → CICU 2S 06-25 14:35 → PCU 3S 06-27 17:25
PROVIDERS: ADMIT Surgery Surgical Critical Care; ATTEND Family Medicine
PROC: 021009W Bypass Coronary Artery, One Artery from Aorta with Autologous Venous Tissue, Open Approach (ICD-10-PCS; 2024-06-25)
PROC: 5A1221Z Performance of Cardiac Output, Continuous (ICD-10-PCS; 2024-06-25)
PROC: 06BP4ZZ Excision of Right Saphenous Vein, Percutaneous Endoscopic Approach (ICD-10-PCS; 2024-06-25)
PROC: 03BC4ZZ Excision of Left Radial Artery, Percutaneous Endoscopic Approach (ICD-10-PCS; 2024-06-25)
PROC: 02100AW Bypass Coronary Artery, One Artery from Aorta with Autologous Arterial Tissue, Open Approach (ICD-10-PCS; principal; 2024-06-25 12:34)
DX: I25.110 Atherosclerotic heart disease of native coronary artery with unstable angina pectoris (principal); E78.5 Hyperlipidemia, unspecified; I48.91 Unspecified atrial fibrillation; Z87.891 Personal history of nicotine dependence
CPT/HCPCS: 36415; 36600; 71045; 71046; 80048; 80053; 80061; 80305; 81003; 82330; 82435; 82803; 82947; 82948; 83036; 83690; 83735; 83880; 84100; 84132; 84295; 84443; 84484; 85018; 85025; 85347; 85610; 85730; 86704; 86705; 86706; 86885; 86900; 86901; 86920; 87081; 87340; 93005; 93306; 93312; 93325; 93880; 93930; 93970; 94010; 94668; 94760; 97116; 97162; 97530; 99285; A4615; A4618; A6213; A6258; A6402; A6449; A7000; A7048; C1751; G0378; J0171; J0282; J0665; J0690; J1250; J1644; J1815; J1885; J2003; J2060; J2150; J2250; J2270; J2371; J2405; J2440; J2704; J2720; J2919; J3370; J3475; J3480; J3490; J7030; J7040; J7050; J7120; P9045; P9047

== ENCOUNTER 2024-07-07 15:44 | Outpatient (CLI) | payer MEDICARE, OTHER ==
[~2024-07-07 15:44] MED LIST changes: +AMI200T PO; +ASPI81TA53 PO; +CHOL200012 PO; -DIPH25TA62 PO; +HYDR-3972 PO; +HYDR-3973 PO; +ISOS30TA84 PO; +LOP12.5T PO; -NITR0.4T51 SL; +OXYM-21 BOTHNARES; -PRED20TA PO; -Vitamin D
== END 2024-07-07 23:59 | disposition home or self-care (01) ==
LOC: RAD 15:44
PROVIDERS: ATTEND Physician Assistant Surgical
DX: J90 Pleural effusion, not elsewhere classified (principal); R06.02 Shortness of breath; Z95.1 Presence of aortocoronary bypass graft
CPT/HCPCS: 71046

== ENCOUNTER 2024-08-15 06:48 | Inpatient (IN) | payer OTHER, MEDICARE ==
[~2024-08-15] VITALS: Ht 180.3 cm; Wt 80.2 kg
[~2024-08-15 06:48] MED LIST changes: -HYDR-3973 PO
[2024-08-15 07:19] LABS: BASOPHILS # (AUTO) 0.1 X10'3 (0-0.2); BASOPHILS % (AUTO) 0.8 % (0-1); EOSINOPHILS # (AUTO) 0.1 X10'3 (0-0.9); EOSINOPHILS % (AUTO) 0.7 % (0-6); HEMATOCRIT 40.6 % (42.0-52.0); HEMOGLOBIN 13.5 g/dl (14.0-17.9); LYMPHOCYTES # (AUTO) 1.3 X10'3 (1.1-4.8); LYMPHOCYTES % (AUTO) 15.7 % (21-51); MEAN CORPUSCULAR HEMOGLOBIN 29.5 PG (27.0-31.0); MEAN CORPUSCULAR HGB CONC 33.3 g/dL (33.0-36.5); MEAN CORPUSCULAR VOLUME 88.7 FL (78-98); MEAN PLATELET VOLUME 7.4 FL (7.4-10.4); MONOCYTES # (AUTO) 0.4 X10'3 (0-0.9); MONOCYTES % (AUTO) 4.5 % (2-12); NEUTROPHILS # (AUTO) 6.6 X10'3 (1.8-7.7); NEUTROPHILS % (AUTO) 78.3 % (42-75); PLATELET COUNT 421 X10'3 (140-440); RED BLOOD COUNT 4.58 X10'6 (4.70-6.10); WHITE BLOOD COUNT 8.4 X10'3 (4.5-11.0)
[2024-08-15 07:31] LABS: ALANINE AMINOTRANSFERASE 42 U/L (12-78); ALBUMIN 3.5 G/DL (3.4-5.0); ALBUMIN/GLOBULIN RATIO 1.1 (1.1-1.5); ALKALINE PHOSPHATASE 137 IU/L (46-116); ANION GAP 10 (8-16); ASPARTATE AMINO TRANSFERASE 27 U/L (10-37); BILIRUBIN,TOTAL 0.4 MG/DL (0.1-1.0); BLOOD UREA NITROGEN 15 MG/DL (7-18); BUN/CREATININE RATIO 18.5 (10.0-20.0); CHLORIDE 110 MMOL/L (99-107); CREATININE 0.81 MG/DL (0.60-1.10); GLUCOSE 106 MG/DL (70-104); POTASSIUM 4.1 MMOL/L (3.5-5.1); SODIUM 143 MMOL/L (135-145); TOTAL CARBON DIOXIDE 22.6 MMOL/L (24-32); TOTAL PROTEIN 6.8 G/DL (6.4-8.2); eCRCL 92 ML/MIN; eGFR > 90 ML/MIN
[2024-08-15 07:39] LABS: PRO BRAIN NATRIURETIC PEPTIDE 94 PG/ML (0-125)
[2024-08-15 09:32] LABS: BILIRUBIN,URINE NEGATIVE (Neg); CLARITY,URINE CLEAR (Clear); COLOR,URINE YELLOW (Yellow); GLUCOSE, URINE NEGATIVE (Neg); KETONES,URINE NEGATIVE (Neg); LEUKOCYTE ESTERASE ,URINE NEGATIVE (Neg); NITRITES, URINE NEGATIVE (Neg); OCCULT BLOOD,URINE NEGATIVE (Neg); PROTEIN,URINE NEGATIVE (Neg); UROBILINOGEN,URINE 0.2 E.U/dL (0.2-1.0)
[2024-08-15 09:33] LABS: UA COLLECTION TYPE URINAL
[2024-08-15] MEDS: normal saline 500ml IV soln 500 ML IV SCH (09:40)
[2024-08-15] MEDS ORDERED: potassium Cl 20 mEq SR tablet PO PRN ×2 (10:00)
[2024-08-15] MEDS ORDERED: magnesium sulf-water 2g/50mL 50 ML IV PRN (10:00)
[2024-08-15] MEDS ORDERED: HYDROcodone/acetaminophen 10/325mg tab PO PRN (10:00)
[2024-08-15] MEDS ORDERED: HYDROcodone/acetaminophen 5mg/325mg tablet PO PRN (10:00)
[2024-08-15] MEDS ORDERED: magnesium sulf-water 4G/100mL 100 ML IV PRN (10:00)
[2024-08-15] MEDS ORDERED: acetaminophen 325mg tablet PO PRN (10:00)
[2024-08-15] MEDS ORDERED: ondansetron/PF 4mg/2ml inj IV PRN (10:00)
[2024-08-15] MEDS ORDERED: potassium Cl 40MEQ/1/2NS 520ml 520 ML IV PRN (10:00)
[2024-08-15] MEDS ORDERED: magnesium hydroxide 30ml (MOM) UD suspension PO PRN (10:00)
[2024-08-15] MEDS ORDERED: morphine 2 MG/ML inj. syringe IV PRN (10:00)
[2024-08-15] MEDS ORDERED: mag hydrox/Alum hydrox/simeth 30ml oral suspension PO PRN (10:00)
[2024-08-15] MEDS ORDERED: magnesium Cl slow-release 64mg tablet PO PRN (10:00)
[2024-08-15] MEDS: LORazepam 1 MG tablet PO ONE (13:54)
[2024-08-15] MEDS ORDERED: METO50TA16 PO (17:39)
[2024-08-15] MEDS: K and/or MAG REPLACEMENT MC SCH (20:00)
[2024-08-15] MEDS: docusate sod 100mg capsule PO SCH (20:19)
[2024-08-15 21:20] VITALS: BP 133/82; PULSE 90; RESP 10; TEMP 97.4; O2SAT 98
[2024-08-16] VITALS (8 sets, daily range): BP systolic 115–152; BP diastolic 64–87; PULSE 86–117; RESP 12–20; TEMP 97.5–99; O2SAT 95–98
[2024-08-16 06:03] LABS: BASOPHILS # (AUTO) 0.1 X10'3 (0-0.2); BASOPHILS % (AUTO) 0.6 % (0-1); EOSINOPHILS # (AUTO) 0.1 X10'3 (0-0.9); HEMATOCRIT 38.3 % (42.0-52.0); LYMPHOCYTES # (AUTO) 2.2 X10'3 (1.1-4.8); LYMPHOCYTES % (AUTO) 24.7 % (21-51); MEAN CORPUSCULAR HEMOGLOBIN 29.8 PG (27.0-31.0); MEAN CORPUSCULAR HGB CONC 33.8 g/dL (33.0-36.5); MEAN CORPUSCULAR VOLUME 88.2 FL (78-98); MEAN PLATELET VOLUME 7.5 FL (7.4-10.4); MONOCYTES # (AUTO) 0.4 X10'3 (0-0.9); MONOCYTES % (AUTO) 4.2 % (2-12); NEUTROPHILS # (AUTO) 6.2 X10'3 (1.8-7.7); NEUTROPHILS % (AUTO) 69.5 % (42-75); PLATELET COUNT 383 X10'3 (140-440); RED BLOOD COUNT 4.34 X10'6 (4.70-6.10); RED CELL DISTRIBUTION WIDTH 14.8 % (11.5-14.5); WHITE BLOOD COUNT 8.9 X10'3 (4.5-11.0)
[2024-08-16 06:21] LABS: ALANINE AMINOTRANSFERASE 39 U/L (12-78); ALBUMIN 3.3 G/DL (3.4-5.0); ALBUMIN/GLOBULIN RATIO 1.1 (1.1-1.5); ALKALINE PHOSPHATASE 133 IU/L (46-116); ANION GAP 10 (8-16); ASPARTATE AMINO TRANSFERASE 18 U/L (10-37); BILIRUBIN,TOTAL 0.5 MG/DL (0.1-1.0); BLOOD UREA NITROGEN 11 MG/DL (7-18); BUN/CREATININE RATIO 12.9 (10.0-20.0); CALCIUM 8.9 MG/DL (8.5-10.1); CHLORIDE 109 MMOL/L (99-107); CREATININE 0.85 MG/DL (0.60-1.10); GLUCOSE 90 MG/DL (70-104); POTASSIUM 3.8 MMOL/L (3.5-5.1); SODIUM 142 MMOL/L (135-145); TOTAL CARBON DIOXIDE 23.2 MMOL/L (24-32); TOTAL PROTEIN 6.4 G/DL (6.4-8.2); eCRCL 87 ML/MIN; eGFR 89 ML/MIN
[2024-08-16] MEDS: atorvastatin 20mg tablet PO SCH (07:53)
[2024-08-16] MEDS: enoxaparin 40mg/0.4ml syringe SUBCUT SCH (08:00)
[2024-08-16] MEDS: aspirin 325mg tablet PO SCH (08:06)
[2024-08-16] MEDS ORDERED: aspirin 325mg tablet PO SCH (08:30)
[2024-08-17 02:00] VITALS: BP 122/76; PULSE 97; RESP 16; TEMP 98.6; O2SAT 96
[2024-08-17 07:00] VITALS: BP 119/78; PULSE 84; RESP 16; TEMP 98.2; O2SAT 100
[2024-08-17 07:10] LABS: BASOPHILS % (AUTO) 0.4 % (0-1); EOSINOPHILS # (AUTO) 0.1 X10'3 (0-0.9); EOSINOPHILS % (AUTO) 0.8 % (0-6); HEMATOCRIT 40.5 % (42.0-52.0); HEMOGLOBIN 13.4 g/dl (14.0-17.9); LYMPHOCYTES # (AUTO) 2.1 X10'3 (1.1-4.8); LYMPHOCYTES % (AUTO) 25.8 % (21-51); MEAN CORPUSCULAR HEMOGLOBIN 29.5 PG (27.0-31.0); MEAN CORPUSCULAR HGB CONC 33.1 g/dL (33.0-36.5); MEAN CORPUSCULAR VOLUME 89.1 FL (78-98); MEAN PLATELET VOLUME 7.7 FL (7.4-10.4); MONOCYTES # (AUTO) 0.5 X10'3 (0-0.9); NEUTROPHILS # (AUTO) 5.4 X10'3 (1.8-7.7); PLATELET COUNT 398 X10'3 (140-440); RED BLOOD COUNT 4.55 X10'6 (4.70-6.10); RED CELL DISTRIBUTION WIDTH 14.8 % (11.5-14.5)
[2024-08-17 07:48] LABS: ALANINE AMINOTRANSFERASE 36 U/L (12-78); ALBUMIN 3.5 G/DL (3.4-5.0); ALKALINE PHOSPHATASE 144 IU/L (46-116); ANION GAP 12 (8-16); ASPARTATE AMINO TRANSFERASE 18 U/L (10-37); BILIRUBIN,TOTAL 0.5 MG/DL (0.1-1.0); BLOOD UREA NITROGEN 13 MG/DL (7-18); BUN/CREATININE RATIO 15.9 (10.0-20.0); CALCIUM 9.1 MG/DL (8.5-10.1); CHLORIDE 105 MMOL/L (99-107); CREATININE 0.82 MG/DL (0.60-1.10); GLUCOSE 93 MG/DL (70-104); MAGNESIUM 2.1 MG/DL (1.5-2.4); POTASSIUM 3.9 MMOL/L (3.5-5.1); SODIUM 140 MMOL/L (135-145); TOTAL CARBON DIOXIDE 23.5 MMOL/L (24-32); TOTAL PROTEIN 6.9 G/DL (6.4-8.2); eCRCL 91 ML/MIN; eGFR > 90 ML/MIN
[2024-08-17] MEDS: aspirin 81mg tab.chew PO SCH (08:58)
[2024-08-17] MEDS: isosorbide mononitrate 30mg tab.SR.24H PO SCH (08:58)
[2024-08-17] MEDS: famotidine 20mg tablet PO SCH (08:59)
[2024-08-17 10:53] VITALS: BP_SYST 106; BP_SYST 111; BP_SYST 115; BP_DIAS 71; PULSE 110; PULSE 118; PULSE 123
[2024-08-17 11:00] VITALS: BP 111/71; PULSE 110; RESP 18; TEMP 96.9; O2SAT 92
[2024-08-17] MEDS ORDERED: MECL-302 PO (11:53)
== END 2024-08-17 13:22 | disposition home or self-care (01) | DRG 149 ==
LOC: ER 06:48 → ED HOLD 10:00 → PCU 3S 19:22
PROVIDERS: ADMIT Internal Medicine; ATTEND Internal Medicine
DX: H81.10 Benign paroxysmal vertigo, unspecified ear (principal); I95.9 Hypotension, unspecified; I25.10 Atherosclerotic heart disease of native coronary artery without angina pectoris; G90.89 Other disorders of autonomic nervous system; Z79.82 Long term (current) use of aspirin; Z79.899 Other long term (current) drug therapy; Z91.041 Radiographic dye allergy status; Z95.1 Presence of aortocoronary bypass graft
CPT/HCPCS: 36415; 70551; 71045; 80053; 81003; 82607; 83735; 83880; 84484; 85025; 86592; 87081; 93005; 93306; 93880; 97110; 97112; 97116; 97162; 99285; G0378; J1650; J7030; J7040